=== PATIENT | male | born 1935 | race Hispanic/Latino ===

== ENCOUNTER 2017-03-20 07:57 | Day surgery (SDC) | payer MEDICARE ==
[2017-03-18 18:03] VITALS: BP 141/54
[2017-03-18 18:12] LABS: INR 1.01 (0.85-1.15); PARTIAL THROMBOPLASTIN TIME 24.9 SEC (26.3-35.5); PROTHROMBIN TIME 10.6 SEC (9.6-11.6)
[2017-03-18 18:16] LABS: EOSINOPHILS % (AUTO) 3.7 % (0.0-8.0); HEMATOCRIT 29.2 % (42-54); LYMPHOCYTES % (AUTO) 36.2 % (21.0-51.0); MEAN CORPUSCULAR HEMOGLOBIN 33.4 pg (27.0-33.0); MEAN CORPUSCULAR HGB CONC 33.9 g/dL (32.0-36.0); MEAN CORPUSCULAR VOLUME 98.6 fL (79-99); MONOCYTES % (AUTO) 9.7 % (3.0-13.0); NEUTROPHILS % (AUTO) 49.4 % (40.0-77.0); NUCLEATED RED BLOOD CELLS 0.1 % (0.0-0.19); PLATELET COUNT (AUTO) 213 K/uL (130-400); POTASSIUM 4.4 mmol/L (3.5-5.1); RED BLOOD CELL COUNT(AUTO) 2.97 MIL/uL (4.50-6.20); RED CELL DISTRIBUTION WIDTH 15.1 % (11.0-15.5); WHITE BLOOD COUNT (AUTO) 4.1 K/uL (4.8-10.8)
[2017-03-18 18:22] LABS: CREATININE 8.9 mg/dL (0.5-1.5)
[2017-03-18 18:58] LABS: APPEARANCE,URINE Clear (CLEAR); BILIRUBIN,URINE Negative (NEGATIVE); COLOR,URINE Yellow (YELLOW); GLUCOSE, URINE (UA) 500 mg/dL (NEGATIVE); KETONES,URINE Negative (NEGATIVE); LEUKOCYTE ESTERASE ,URINE Trace (NEGATIVE); NITRATE,URINE Negative (NEGATIVE); OCCULT BLOOD,URINE Trace (NEGATIVE); PH,URINE 8.5 (5.0-8.0); PROTEIN,URINE POS 2+ (NEGATIVE); UROBILINOGEN,URINE 0.2 mg/dL (0.2-1.0)
[2017-03-18 19:12] LABS: BACTERIA,URINE Rare /HPF (None Seen); RBC,URINE None Seen /HPF (0-1); WBC,URINE 0-1 /HPF (0-1)
[~2017-03-20] VITALS: Ht 175.3 cm; Wt 86.5 kg
[2017-03-20] VITALS (14 sets, daily range): BP systolic 115–140; BP diastolic 52–63
[~2017-03-20 07:57] MED LIST: ALPR-412 PO; FOLI1TAB85 PO; GABA-529 PO; INSU3INS5 SQ; LOSA50TA37 PO; METO-408 PO; OMEP40CA37 PO; SIMV40TA59 PO; TAMS0.4C32 PO; TRAZ-144 PO; [UNRECOGNIZED DRUG - OTHER] PO
[2017-03-20] MEDS ORDERED: LEVOFLOXACIN 500 MG/D5W 100 ML 100 ML IV ONE (08:00)
[2017-03-20] MEDS ORDERED: GENTAMICIN 80 MG/NS 100 ML PB 100 ML IV ONE (09:00)
[2017-03-20] MEDS ORDERED: SODIUM CHLORIDE 0.9% 1000ML 1,000 ML IV ONE (09:13)
[2017-03-20] MEDS ORDERED: ISOVUE-370 50ML VIAL IV ONE (10:17)
[2017-03-20] MEDS ORDERED: PROPOFOL 10 MG/ML 20ML VIAL IV ONE (12:27)
[2017-03-20] MEDS ORDERED: LIDOCAINE PF 2% 5ML ABBOJECT ONE (12:27)
[2017-03-20] MEDS ORDERED: FENTANYL CITRATE PF 50 MCG/1 ML 2ML VIAL ONE (12:27)
== END 2017-03-20 15:05 | disposition home or self-care (01) ==
LOC: DAH 07:57
PROVIDERS: ATTEND Urology
DX: N40.1 Benign prostatic hyperplasia with lower urinary tract symptoms (principal); R33.8 Other retention of urine; I12.0 Hypertensive chronic kidney disease with stage 5 chronic kidney disease or end stage renal disease; E11.22 Type 2 diabetes mellitus with diabetic chronic kidney disease; N18.6 End stage renal disease; Z99.2 Dependence on renal dialysis; E03.9 Hypothyroidism, unspecified; F43.10 Post-traumatic stress disorder, unspecified; I25.10 Atherosclerotic heart disease of native coronary artery without angina pectoris; N20.0 Calculus of kidney
CPT/HCPCS: 36415; 52351; 71045; 74420; 80048; 81001; 82948 ×2; 85025; 85610; 85730; 87088; 93005; A4354; A4358; A4600; C1894; J1580; J1956; J2001; J2704; J3010; J7030 ×2; Q9967; A4218

== ENCOUNTER 2017-05-31 13:32 | Inpatient (IN) | payer MEDICARE ==
[~2017-05-31] VITALS: Ht 177.8 cm; Wt 84.1 kg
[~2017-05-31 13:32] MED LIST changes: -TRAZ-144 PO; +TRAZ-185 PO
[2017-05-31 14:08] LABS: BASOPHILS % (AUTO) 1.2 % (0.0-5.0); EOSINOPHILS % (AUTO) 4.7 % (0.0-8.0); HEMATOCRIT 31.7 % (42-54); LYMPHOCYTES % (AUTO) 21.6 % (21.0-51.0); MEAN CORPUSCULAR HEMOGLOBIN 32.9 pg (27.0-33.0); MEAN CORPUSCULAR HGB CONC 34.5 g/dL (32.0-36.0); MEAN CORPUSCULAR VOLUME 95.5 fL (79-99); MONOCYTES % (AUTO) 8.2 % (3.0-13.0); NEUTROPHILS % (AUTO) 64.3 % (40.0-77.0); PLATELET COUNT (AUTO) 189 K/uL (130-400); RED BLOOD CELL COUNT(AUTO) 3.32 MIL/uL (4.50-6.20); RED CELL DISTRIBUTION WIDTH 17.8 % (11.0-15.5); WHITE BLOOD COUNT (AUTO) 6.9 K/uL (4.8-10.8)
[2017-05-31 14:21] LABS: ALBUMIN 3.3 g/dL (3.5-5.0); BILIRUBIN,TOTAL 0.4 mg/dL (0.2-1.0); POTASSIUM 3.6 mmol/L (3.5-5.1); TOTAL PROTEIN, SERUM 7.5 g/dL (6.0-8.3)
[2017-05-31 14:27] LABS: CREATININE 9.5 mg/dL (0.5-1.5)
[2017-05-31] MEDS ORDERED: SODIUM CHLORIDE 0.9% 500ML 500 ML IV ONE (14:40)
[2017-05-31 14:59] LABS: CREATINE KINASE MB 1.2 ng/mL (0.5-3.6); MAGNESIUM 1.9 mg/dL (1.80-2.40)
[2017-05-31 15:02] LABS: INR 1.01 (0.85-1.15); PARTIAL THROMBOPLASTIN TIME 22.5 SEC (26.3-35.5); PROTHROMBIN TIME 10.4 SEC (9.6-11.6)
[2017-05-31] MEDS ORDERED: MECLIZINE HCL 25 MG TABLET ONE (15:56)
[2017-05-31 16:00] LABS: APPEARANCE,URINE Turbid (CLEAR); BILIRUBIN,URINE Negative (NEGATIVE); COLOR,URINE Yellow (YELLOW); GLUCOSE, URINE (UA) Negative (NEGATIVE); KETONES,URINE Negative (NEGATIVE); LEUKOCYTE ESTERASE ,URINE Large (NEGATIVE); NITRATE,URINE Negative (NEGATIVE); OCCULT BLOOD,URINE Moderate (NEGATIVE); PH,URINE 6.5 (5.0-8.0); PROTEIN,URINE 300 (NEGATIVE); UROBILINOGEN,URINE 0.2 mg/dL (0.2-1.0)
[2017-05-31 16:06] LABS: BACTERIA,URINE Moderate /HPF (None Seen); RBC,URINE >100 /HPF (0-1); TRANSITIONAL EPI CELLS,URINE Many /HPF (None Seen); WBC,URINE Full Field /HPF (0-1)
[2017-05-31] MEDS ORDERED: VANCOMYCIN 1.25 GM in SODIUM CHLORIDE 0.9% 250 ML IV SCH (17:45)
[2017-05-31 21:40] VITALS: BP 165/82
[2017-05-31] MEDS ORDERED: MEROPENEM 1GM IVPB PREMIXED 1 GM IV SCH (22:15)
[2017-05-31] MEDS ORDERED: VANCOMYCIN PROTOCOL PER PHARMACY IV SCH (22:15)
[2017-05-31] MEDS ORDERED: ACETAMINOPHEN 325 MG TAB PO PRN (22:15)
[2017-05-31 23:40] VITALS: BP 148/71
[2017-06-01 04:00] VITALS: BP_SYST 139; BP_SYST 148; BP_SYST 160; BP_DIAS 50; BP_DIAS 74; BP_DIAS 94
[2017-06-01 05:28] LABS: HEMATOCRIT 29.1 % (42-54); MEAN CORPUSCULAR HEMOGLOBIN 32.1 pg (27.0-33.0); MEAN CORPUSCULAR HGB CONC 33.5 g/dL (32.0-36.0); MEAN CORPUSCULAR VOLUME 95.8 fL (79-99); PLATELET COUNT (AUTO) 180 K/uL (130-400); RED BLOOD CELL COUNT(AUTO) 3.03 MIL/uL (4.50-6.20); RED CELL DISTRIBUTION WIDTH 17.9 % (11.0-15.5)
[2017-06-01 05:49] LABS: ALBUMIN 2.8 g/dL (3.5-5.0); BILIRUBIN,TOTAL 0.3 mg/dL (0.2-1.0); POTASSIUM 3.5 mmol/L (3.5-5.1); TOTAL PROTEIN, SERUM 6.3 g/dL (6.0-8.3)
[2017-06-01 06:02] LABS: CREATININE 10.5 mg/dL (0.5-1.5)
[2017-06-01] MEDS ORDERED: COMPOUND IV REFRIGERATED 1 EACH IVSOLN MISC PRN (06:15)
[2017-06-01 07:00] VITALS: BP 129/61
[2017-06-01] MEDS: PANTOPRAZOLE SODIUM 40 MG TABLET.DR PO SCH (08:54)
[2017-06-01] MEDS: MEROPENEM 1 GM VIAL IVP SCH ×2 (08:54→21:18)
[2017-06-01 11:00] VITALS: BP 137/60
[2017-06-01] MEDS: INSULIN HUMULIN R 100 UNIT/ML 3ML SQ SCH ×3 (11:30→21:00)
[2017-06-01] MEDS: ALPRAZOLAM 1 MG TAB PO SCH ×2 (14:00→21:24)
[2017-06-01 16:00] VITALS: BP 145/59
[2017-06-01 19:50] VITALS: BP 142/64
[2017-06-01] MEDS: TAMSULOSIN HCL 0.4 MG CAP.ER.24H PO SCH (21:18)
[2017-06-01] MEDS: TRAZODONE HCL 50 MG TAB PO SCH (21:18)
[2017-06-01] MEDS: GABAPENTIN 100 MG CAPSULE PO SCH (21:18)
[2017-06-01 23:34] VITALS: BP 115/45
[2017-06-02 03:35] VITALS: BP 107/41
[2017-06-02] MEDS: INSULIN HUMULIN R 100 UNIT/ML 3ML SQ SCH ×4 (06:15→21:00)
[2017-06-02] MEDS: THYROXINE PO SCH (09:00)
[2017-06-02 09:07] VITALS: BP 118/58
[2017-06-02 12:00] VITALS: BP 137/55
[2017-06-02] MEDS: MEROPENEM 1 GM VIAL IVP SCH ×2 (12:31→20:59)
[2017-06-02] MEDS: ATORVASTATIN CALCIUM 20 MG TABLET PO SCH (12:31)
[2017-06-02] MEDS: PANTOPRAZOLE SODIUM 40 MG TABLET.DR PO SCH (12:31)
[2017-06-02] MEDS: FOLIC ACID/VITAMIN B COMP W-C 1 MG CAPSULE PO SCH (12:31)
[2017-06-02] MEDS: ALPRAZOLAM 1 MG TAB PO SCH ×3 (12:31→20:59)
[2017-06-02] MEDS: GABAPENTIN 100 MG CAPSULE PO SCH ×2 (12:33→20:59)
[2017-06-02 16:48] VITALS: BP 125/56
[2017-06-02 19:35] VITALS: BP 119/54
[2017-06-02] MEDS: TAMSULOSIN HCL 0.4 MG CAP.ER.24H PO SCH (20:59)
[2017-06-02] MEDS: TRAZODONE HCL 50 MG TAB PO SCH (20:59)
[2017-06-02 23:33] VITALS: BP 101/38
[2017-06-03 03:46] VITALS: BP 97/47
[2017-06-03 04:30] VITALS: BP 106/66
[2017-06-03 05:57] LABS: BASOPHILS % (AUTO) 0.6 % (0.0-5.0); EOSINOPHILS % (AUTO) 5.7 % (0.0-8.0); HEMATOCRIT 33.9 % (42-54); LYMPHOCYTES % (AUTO) 16.5 % (21.0-51.0); MEAN CORPUSCULAR HEMOGLOBIN 32.1 pg (27.0-33.0); MEAN CORPUSCULAR HGB CONC 33.2 g/dL (32.0-36.0); MEAN CORPUSCULAR VOLUME 96.8 fL (79-99); MONOCYTES % (AUTO) 10.1 % (3.0-13.0); NEUTROPHILS % (AUTO) 67.1 % (40.0-77.0); PLATELET COUNT (AUTO) 182 K/uL (130-400); RED CELL DISTRIBUTION WIDTH 18.1 % (11.0-15.5)
[2017-06-03 06:22] LABS: POTASSIUM 4.2 mmol/L (3.5-5.1)
[2017-06-03 06:25] LABS: CREATININE 10.1 mg/dL (0.5-1.5)
[2017-06-03] MEDS: INSULIN HUMULIN R 100 UNIT/ML 3ML SQ SCH ×2 (06:34→11:30)
[2017-06-03] MEDS ORDERED: FLUCONAZOLE 100 MG TAB PO SCH (09:00)
[2017-06-03] MEDS: THYROXINE PO SCH (09:00)
[2017-06-03 09:01] VITALS: BP 115/56
[2017-06-03] MEDS: MEROPENEM 1 GM VIAL IVP SCH (10:08)
[2017-06-03] MEDS: ATORVASTATIN CALCIUM 20 MG TABLET PO SCH (10:10)
[2017-06-03] MEDS: PANTOPRAZOLE SODIUM 40 MG TABLET.DR PO SCH (10:10)
[2017-06-03] MEDS: FOLIC ACID/VITAMIN B COMP W-C 1 MG CAPSULE PO SCH (10:10)
[2017-06-03] MEDS: ALPRAZOLAM 1 MG TAB PO SCH ×2 (10:10→14:59)
[2017-06-03] MEDS: GABAPENTIN 100 MG CAPSULE PO SCH (10:10)
[2017-06-03 12:11] VITALS: BP 113/56
[2017-06-07] MEDS ORDERED: VANCOMYCIN 1.25 GM in SODIUM CHLORIDE 0.9% 250 ML IV SCH (09:00)
== END 2017-06-03 19:05 | disposition home or self-care (01) | DRG 871 ==
LOC: EDH 13:32 → EDHIP 17:35 → 4CH 20:30
PROVIDERS: ADMIT Internal Medicine Nephrology; ATTEND Internal Medicine Nephrology
PROC: 5A1D70Z Performance of Urinary Filtration, Intermittent, Less than 6 Hours Per Day (ICD-10-PCS; principal; 2017-06-02)
DX: A41.9 Sepsis, unspecified organism (principal); N18.6 End stage renal disease; E11.22 Type 2 diabetes mellitus with diabetic chronic kidney disease; I12.0 Hypertensive chronic kidney disease with stage 5 chronic kidney disease or end stage renal disease; I48.92 Unspecified atrial flutter; N39.0 Urinary tract infection, site not specified; D64.9 Anemia, unspecified; M19.90 Unspecified osteoarthritis, unspecified site; E03.9 Hypothyroidism, unspecified; E66.9 Obesity, unspecified; E78.5 Hyperlipidemia, unspecified; F41.1 Generalized anxiety disorder; F43.10 Post-traumatic stress disorder, unspecified; I25.10 Atherosclerotic heart disease of native coronary artery without angina pectoris; N40.0 Benign prostatic hyperplasia without lower urinary tract symptoms; Z99.2 Dependence on renal dialysis; Z87.442 Personal history of urinary calculi; Z87.440 Personal history of urinary (tract) infections; Z68.26 Body mass index [BMI] 26.0-26.9, adult; Z88.0 Allergy status to penicillin; Z83.3 Family history of diabetes mellitus
CPT/HCPCS: 36415; 70450; 80048; 80053; 80202; 81001; 82550; 82553; 82948; 83735; 84484; 85025; 85027; 85610; 85730; 87040; 87088; 87804; 90935; 93306; A4218; J1815; J2185; J3370; J7030; J7040

== ENCOUNTER → 2018-05-05 | Outpatient (CLI) | payer MEDICARE ==
[~2018-05-05] MED LIST changes: -LOSA50TA37 PO; +LOSA50TA64 PO
== END | disposition home or self-care (01) ==
LOC: SHCH 10:02
PROVIDERS: ATTEND Internal Medicine Cardiovascular Disease
DX: I11.9 Hypertensive heart disease without heart failure (principal); I65.23 Occlusion and stenosis of bilateral carotid arteries; I34.0 Nonrheumatic mitral (valve) insufficiency; I25.10 Atherosclerotic heart disease of native coronary artery without angina pectoris
CPT/HCPCS: 93306; 93880

== ENCOUNTER → 2018-05-07 | Outpatient (CLI) | payer MEDICARE ==
[~2018-05-07] MED LIST changes: +REGADENOSON 0.4 MG/5 ML PF SYG IVP SCH
== END | disposition home or self-care (01) ==
LOC: SHCH 09:32
PROVIDERS: ATTEND Internal Medicine Cardiovascular Disease
DX: R01.1 Cardiac murmur, unspecified (principal); R07.89 Other chest pain
CPT/HCPCS: 78452; 93017; 96374; A9500 ×2; J2785

== ENCOUNTER 2018-09-03 09:04 | Day surgery (SDC) | payer MEDICARE ==
[~2018-09-03] VITALS: Ht 175.3 cm; Wt 81.6 kg
[~2018-09-03 09:04] MED LIST changes: -LOSA50TA64 PO; -REGADENOSON 0.4 MG/5 ML PF SYG IVP SCH; +SODIUM CHLORIDE 0.9% 1000ML 1,000 ML IV ONE; -TAMS0.4C32 PO
[2018-09-03 10:18] VITALS: BP 134/50
[2018-09-03 11:02] VITALS: BP 120/50
[2018-09-03 11:07] VITALS: BP 103/44
[2018-09-03 11:12] VITALS: BP 98/52
[2018-09-03 11:17] VITALS: BP 106/52
[2018-09-03 11:22] VITALS: BP 110/55
--- NOTE | 2018-09-03 11:30 | NUR ---
dc pt dc home via wc no distress noted. denied any pain or discomforts accompanied by spouse. dc instructions given to pt spouse earlier with follow up appointment, instructed to continue home meds. she verbalized understanding.
== END 2018-09-03 11:30 | disposition home or self-care (01) ==
LOC: DAH 09:04 → ENDO 09:04
PROVIDERS: ATTEND Internal Medicine
DX: K29.50 Unspecified chronic gastritis without bleeding (principal); K31.9 Disease of stomach and duodenum, unspecified; K31.7 Polyp of stomach and duodenum; K22.8 Other specified diseases of esophagus; K31.89 Other diseases of stomach and duodenum; D50.9 Iron deficiency anemia, unspecified; E78.5 Hyperlipidemia, unspecified; F41.9 Anxiety disorder, unspecified; F32.9 Major depressive disorder, single episode, unspecified; E11.22 Type 2 diabetes mellitus with diabetic chronic kidney disease; I12.0 Hypertensive chronic kidney disease with stage 5 chronic kidney disease or end stage renal disease; N18.6 End stage renal disease; Z99.2 Dependence on renal dialysis; R00.1 Bradycardia, unspecified; Z79.899 Other long term (current) drug therapy; Z87.442 Personal history of urinary calculi; Z86.010 Personal history of colon polyps; Z80.0 Family history of malignant neoplasm of digestive organs
CPT/HCPCS: 36415; 43239; 82948 ×2; 84132; 88305; 88342; 93005; A4606; J7030

== ENCOUNTER 2018-09-29 07:09 | Day surgery (SDC) | payer MEDICARE ==
[~2018-09-29] VITALS: Ht 177.8 cm; Wt 81.8 kg
[2018-09-29 09:00] VITALS: BP 178/72
[2018-09-29] MEDS ORDERED: PANT40TA25 PO (09:29)
[2018-09-29] MEDS ORDERED: LEVO25TA4 PO (09:29)
[2018-09-29] MEDS ORDERED: AMLODIPINE PO (09:29)
[2018-09-29] MEDS ORDERED: LOSARTAN PO (09:29)
[2018-09-29] MEDS ORDERED: INSU3INS5 SQ (09:29)
[2018-09-29] MEDS ORDERED: METOPROLOL PO (09:29)
[2018-09-29] MEDS ORDERED: PROPOFOL 10 MG/ML 20ML VIAL IV ONE (10:47)
[2018-09-29 11:42] VITALS: BP 127/37
[2018-09-29 11:47] VITALS: BP 116/37
[2018-09-29 11:52] VITALS: BP 114/67
[2018-09-29 11:57] VITALS: BP 145/48
[2018-09-29 12:02] VITALS: BP 148/44
--- NOTE | 2018-09-29 12:25 | NUR ---
Patient's urine is light pink. Patient's states he has had pink urine for some time and it not a new occurrence. Addendum: 09/29/18 at 1226 by ERICA SABILLON RN RN Amended: Links added.
== END 2018-09-29 12:14 | disposition home or self-care (01) ==
LOC: ENDO 07:09 → DAH 07:09 → ENDO 12:14
PROVIDERS: ATTEND Internal Medicine
DX: D12.2 Benign neoplasm of ascending colon (principal); D12.0 Benign neoplasm of cecum; D12.4 Benign neoplasm of descending colon; D12.3 Benign neoplasm of transverse colon; K21.9 Gastro-esophageal reflux disease without esophagitis; K57.30 Diverticulosis of large intestine without perforation or abscess without bleeding; Z86.010 Personal history of colon polyps; K59.01 Slow transit constipation; K29.70 Gastritis, unspecified, without bleeding; I12.0 Hypertensive chronic kidney disease with stage 5 chronic kidney disease or end stage renal disease; E11.22 Type 2 diabetes mellitus with diabetic chronic kidney disease; N18.6 End stage renal disease; Z79.899 Other long term (current) drug therapy; E78.5 Hyperlipidemia, unspecified; F41.9 Anxiety disorder, unspecified; F32.9 Major depressive disorder, single episode, unspecified; Z90.49 Acquired absence of other specified parts of digestive tract; Z98.890 Other specified postprocedural states; Z96.659 Presence of unspecified artificial knee joint
CPT/HCPCS: 36415; 45380; 45385; 82948 ×2; 84132; 88305; A4649; J2704; J7030

== ENCOUNTER 2018-10-01 16:20 | Observation (INO) | payer MEDICARE ==
[~2018-10-01 16:20] MED LIST changes: +AMLODIPINE PO; +LEVO25TA4 PO; +LOSARTAN PO; -METO-408 PO; +METOPROLOL PO; -OMEP40CA37 PO; +PANT40TA25 PO; -SODIUM CHLORIDE 0.9% 1000ML 1,000 ML IV ONE; -[UNRECOGNIZED DRUG - OTHER] PO
[2018-10-01] MEDS ORDERED: ONDANSETRON HCL 4 MG/2 ML VIAL ONE ×2 (16:30→17:33)
[2018-10-01 17:09] LABS: BASOPHILS % (AUTO) 0.7 % (0.0-5.0); EOSINOPHILS % (AUTO) 0.3 % (0.0-8.0); HEMATOCRIT 42.4 % (42-54); LYMPHOCYTES % (AUTO) 23.1 % (21.0-51.0); MEAN CORPUSCULAR HEMOGLOBIN 31.7 pg (27.0-33.0); MEAN CORPUSCULAR HGB CONC 32.7 g/dL (32.0-36.0); MEAN CORPUSCULAR VOLUME 97.1 fL (79-99); MONOCYTES % (AUTO) 8.3 % (3.0-13.0); NEUTROPHILS % (AUTO) 67.6 % (40.0-77.0); PLATELET COUNT (AUTO) 217 K/uL (130-400); RED BLOOD CELL COUNT(AUTO) 4.37 MIL/uL (4.50-6.20); RED CELL DISTRIBUTION WIDTH 16.1 % (11.0-15.5); WHITE BLOOD COUNT (AUTO) 7.3 K/uL (4.8-10.8)
[2018-10-01 17:25] LABS: INR 1.03 (0.85-1.15); PARTIAL THROMBOPLASTIN TIME 28.4 SEC (26.3-35.5); PROTHROMBIN TIME 10.8 SEC (9.6-11.6)
[2018-10-01 17:37] LABS: ALBUMIN 3.9 g/dL (3.5-5.0); BILIRUBIN,TOTAL 0.4 mg/dL (0.2-1.0); POTASSIUM 3.7 mmol/L (3.5-5.1); TOTAL PROTEIN, SERUM 8.3 g/dL (6.0-8.3)
[2018-10-01 17:40] LABS: CREATININE 9.4 mg/dL (0.5-1.5)
[2018-10-01 18:04] LABS: BILIRUBIN,URINE Negative (NEGATIVE); COLOR,URINE Yellow (YELLOW); GLUCOSE, URINE (UA) 250 mg/dL (NEGATIVE); KETONES,URINE Negative (NEGATIVE); LEUKOCYTE ESTERASE ,URINE Large (NEGATIVE); NITRATE,URINE Negative (NEGATIVE); OCCULT BLOOD,URINE Large (NEGATIVE); PH,URINE 6.5 (5.0-8.0); PROTEIN,URINE 300 mg/dL (NEGATIVE)
[2018-10-01 18:21] LABS: APPEARANCE,URINE CLOUDY (CLEAR)
[2018-10-01 18:32] LABS: BACTERIA,URINE Few /HPF (None Seen); WBC,URINE >100 /HPF (0-1)
[2018-10-01 18:33] LABS: SQUAMOUS EPITHELIAL CELL,UR Rare /HPF (0-2)
[2018-10-01] MEDS ORDERED: CEFTRIAXONE SODIUM 1 GM ONE (19:13)
[2018-10-01] MEDS ORDERED: CEFTRIAXONE SODIUM 1 GM IV SCH (19:30)
[2018-10-01] MEDS ORDERED: ACETAMINOPHEN 325 MG TAB PO PRN (19:30)
[2018-10-01] MEDS ORDERED: MORPHINE SULFATE 2 MG/ML 1ML SYG IV PRN (19:30)
[2018-10-01] MEDS ORDERED: ONDANSETRON HCL 4 MG/2 ML VIAL IV PRN (19:30)
[2018-10-01] MEDS ORDERED: LACTULOSE 20 GM/30 ML UDCUP PO PRN (19:45)
[2018-10-01] MEDS ORDERED: FAMOTIDINE 20MG TAB 20 MG TAB ONE (20:25)
[2018-10-01] MEDS ORDERED: FAMOTIDINE 20MG TAB 20 MG TAB PO SCH (21:00)
[2018-10-01] MEDS ORDERED: INSULIN HUMULIN R 100 UNIT/ML 3ML SQ SCH (21:00)
[2018-10-01] MEDS ORDERED: LORAZEPAM 2 MG/ML 1 ML VIAL ONE ×2 (21:35→21:36)
[2018-10-01] MEDS ORDERED: FOSPHENYTOIN SODIUM 500 MG/10ML VIAL IJ ONE (21:39)
[2018-10-01] MEDS ORDERED: SODIUM CHLORIDE 0.9% 100 ML IV ONE (21:42)
[2018-10-02] MEDS ORDERED: ENOXAPARIN SODIUM 40 MG/0.4 ML SYRINGE SQ SCH (09:00)
== END 2018-10-02 00:37 | disposition short-term general hospital (02) ==
LOC: EEVIPCON 16:20 → EDH 16:20 → EDHIP 19:16
PROVIDERS: ADMIT Internal Medicine; ATTEND Internal Medicine
DX: N39.0 Urinary tract infection, site not specified (principal); I12.0 Hypertensive chronic kidney disease with stage 5 chronic kidney disease or end stage renal disease; N18.6 End stage renal disease; E11.22 Type 2 diabetes mellitus with diabetic chronic kidney disease; E78.5 Hyperlipidemia, unspecified; J44.9 Chronic obstructive pulmonary disease, unspecified; K57.90 Diverticulosis of intestine, part unspecified, without perforation or abscess without bleeding; K59.00 Constipation, unspecified; M19.90 Unspecified osteoarthritis, unspecified site; M47.812 Spondylosis without myelopathy or radiculopathy, cervical region; R56.9 Unspecified convulsions; S12.600A Unspecified displaced fracture of seventh cervical vertebra, initial encounter for closed fracture; X58.XXXA Exposure to other specified factors, initial encounter; Y93.89 Activity, other specified; Y92.89 Other specified places as the place of occurrence of the external cause; Y99.8 Other external cause status; Z99.2 Dependence on renal dialysis; Z82.0 Family history of epilepsy and other diseases of the nervous system; Z82.3 Family history of stroke; Z82.49 Family history of ischemic heart disease and other diseases of the circulatory system; Z82.5 Family history of asthma and other chronic lower respiratory diseases; Z83.3 Family history of diabetes mellitus; Z90.49 Acquired absence of other specified parts of digestive tract; Z98.41 Cataract extraction status, right eye; Z98.42 Cataract extraction status, left eye; Z96.652 Presence of left artificial knee joint; Z79.899 Other long term (current) drug therapy
CPT/HCPCS: 36415; 70450 ×2; 71045; 72125; 74176; 80053; 81001; 82150; 82550; 82948; 83605; 83690; 84484; 85025; 85610; 85730; 87040 ×2; 87088; 93005; 99291; G0378 ×5; J0696; J2060 ×2; J2405 ×2; Q2009

== ENCOUNTER 2019-11-15 10:01 | Emergency (ER) | payer MEDICARE ==
[~2019-11-15 10:01] MED LIST changes: -PANT40TA25 PO; +PANT40TA54 PO
[2019-11-15 10:26] LABS: ALBUMIN 2.6 g/dL (3.5-5.0); BILIRUBIN,TOTAL 0.4 mg/dL (0.2-1.0); POTASSIUM 5.7 mmol/L (3.5-5.1); TOTAL PROTEIN, SERUM 7.1 g/dL (6.0-8.3)
[2019-11-15 10:27] LABS: CREATININE 10.6 mg/dL (0.5-1.5)
[2019-11-15 10:51] LABS: CREATINE KINASE, TOTAL 103 U/L (21-232); MYOGLOBIN 356 ng/mL (10-92); TROPONIN I < 0.04 ng/mL (0.00-0.06)
[2019-11-15 11:54] LABS: BASOPHILS % (AUTO) 0.6 % (0.0-5.0); EOSINOPHILS % (AUTO) 2.5 % (0.0-8.0); HEMATOCRIT 24.3 % (42-54); LYMPHOCYTES % (AUTO) 9.5 % (21.0-51.0); MEAN CORPUSCULAR HEMOGLOBIN 31.2 pg (27.0-33.0); MEAN CORPUSCULAR HGB CONC 30.5 g/dL (32.0-36.0); MEAN CORPUSCULAR VOLUME 102.5 fL (79-99); MONOCYTES % (AUTO) 8.9 % (3.0-13.0); NEUTROPHILS % (AUTO) 78.3 % (40.0-77.0); PLATELET COUNT (AUTO) 247 K/uL (130-400); RED BLOOD CELL COUNT(AUTO) 2.37 MIL/uL (4.50-6.20); RED CELL DISTRIBUTION WIDTH 16.1 % (11.0-15.5)
[2019-11-15 12:01] LABS: INR 1.07 (0.85-1.15); PARTIAL THROMBOPLASTIN TIME 28.2 SEC (26.3-35.5); PROTHROMBIN TIME 11.5 SEC (9.6-11.6)
[2019-11-15 12:25] LABS: B-TYPE NATRIURETIC PEPTIDE 2000 pg/mL (0-100)
== END 2019-11-15 14:17 | disposition left against medical advice (07) ==
LOC: EDH 10:01
DX: S01.01XA Laceration without foreign body of scalp, initial encounter (principal); R55 Syncope and collapse; I12.0 Hypertensive chronic kidney disease with stage 5 chronic kidney disease or end stage renal disease; E11.22 Type 2 diabetes mellitus with diabetic chronic kidney disease; N18.6 End stage renal disease; E78.5 Hyperlipidemia, unspecified; Z90.49 Acquired absence of other specified parts of digestive tract; W18.39XA Other fall on same level, initial encounter; Y93.89 Activity, other specified; Y92.89 Other specified places as the place of occurrence of the external cause; Y99.8 Other external cause status
CPT/HCPCS: 12001; 36415; 70450; 72125; 80053; 82550; 83874; 83880; 84484; 85025; 85610; 85730; 93005

== ENCOUNTER 2019-12-06 14:21 | Emergency (ER) | payer MEDICARE | END 2019-12-06 14:45 | disposition home or self-care (01) | LOC: EDH 14:21 | DX: S01.01XD Laceration without foreign body of scalp, subsequent encounter (principal); I12.0 Hypertensive chronic kidney disease with stage 5 chronic kidney disease or end stage renal disease; E11.22 Type 2 diabetes mellitus with diabetic chronic kidney disease; N18.6 End stage renal disease; E78.5 Hyperlipidemia, unspecified; F43.10 Post-traumatic stress disorder, unspecified; Z99.2 Dependence on renal dialysis; Z87.891 Personal history of nicotine dependence; X58.XXXD Exposure to other specified factors, subsequent encounter | CPT/HCPCS: 99281 ==

== ENCOUNTER → 2020-03-23 | Outpatient (CLI) | payer MEDICARE ==
[~2020-03-23] VITALS: Ht 177.8 cm; Wt 89.8 kg
[~2020-03-23] MED LIST changes: +REGADENOSON 0.4 MG/5 ML PF SYG IVP SCH
== END | disposition home or self-care (01) ==
LOC: SHCH 08:01
PROVIDERS: ATTEND Internal Medicine Cardiovascular Disease
DX: I25.110 Atherosclerotic heart disease of native coronary artery with unstable angina pectoris (principal)
CPT/HCPCS: 78452; 93017; 96374; A9500 ×2; J2785

== ENCOUNTER 2020-05-14 15:18 | Inpatient (IN) | payer MEDICARE ==
[~2020-05-14] VITALS: Ht 177.8 cm; Wt 92.8 kg
[~2020-05-14 15:18] MED LIST changes: -REGADENOSON 0.4 MG/5 ML PF SYG IVP SCH
[2020-05-14 16:29] LABS: INR 1.05 (0.85-1.15); PROTHROMBIN TIME 11.4 SEC (9.6-11.6)
[2020-05-14 16:31] LABS: PARTIAL THROMBOPLASTIN TIME 24.5 SEC (26.3-35.5)
[2020-05-14 16:35] LABS: ALBUMIN 3.6 g/dL (3.5-5.0); BILIRUBIN,TOTAL 0.4 mg/dL (0.2-1.0); POTASSIUM 4.9 mmol/L (3.5-5.1); TOTAL PROTEIN, SERUM 8.1 g/dL (6.0-8.3)
[2020-05-14 16:37] LABS: BASOPHILS % (AUTO) 0.8 % (0.0-5.0); EOSINOPHILS % (AUTO) 2.6 % (0.0-8.0); HEMATOCRIT 35.2 % (42-54); LYMPHOCYTES % (AUTO) 12.2 % (21.0-51.0); MEAN CORPUSCULAR HEMOGLOBIN 33.7 pg (27.0-33.0); MEAN CORPUSCULAR HGB CONC 31.5 g/dL (32.0-36.0); MONOCYTES % (AUTO) 5.6 % (3.0-13.0); NEUTROPHILS % (AUTO) 78.4 % (40.0-77.0); PLATELET COUNT (AUTO) 222 K/uL (130-400); RED BLOOD CELL COUNT(AUTO) 3.29 MIL/uL (4.50-6.20); RED CELL DISTRIBUTION WIDTH 15.9 % (11.0-15.5); WHITE BLOOD COUNT (AUTO) 7.4 K/uL (4.8-10.8)
[2020-05-14 16:38] LABS: CREATININE 11.5 mg/dL (0.5-1.5)
[2020-05-14 17:00] LABS: B-TYPE NATRIURETIC PEPTIDE 369 pg/mL (0-100)
[2020-05-14] MEDS ORDERED: ACETAMINOPHEN 325 MG TAB PO PRN (17:45)
[2020-05-14] MEDS ORDERED: ONDANSETRON 4MG INJ IVP PRN (17:45)
[2020-05-14] MEDS ORDERED: MORPHINE 2 MG SYG IVP PRN (17:45)
[2020-05-14 19:32] LABS: APPEARANCE,URINE Turbid (CLEAR); BILIRUBIN,URINE Negative (NEGATIVE); COLOR,URINE Yellow (YELLOW); GLUCOSE, URINE (UA) 250 mg/dL (NEGATIVE); KETONES,URINE Negative (NEGATIVE); LEUKOCYTE ESTERASE ,URINE Large (NEGATIVE); NITRATE,URINE Negative (NEGATIVE); OCCULT BLOOD,URINE Large (NEGATIVE); PROTEIN,URINE 300 mg/dL (NEGATIVE); UROBILINOGEN,URINE 0.2 mg/dL (0.2-1.0)
[2020-05-14 19:44] LABS: BACTERIA,URINE Few /HPF (None Seen); MUCUS,URINE Rare LPF (None Seen); SQUAMOUS EPITHELIAL CELL,UR 0-2 /HPF (0-2); WBC,URINE >100 /HPF (0-1)
[2020-05-14 20:49] VITALS: BP 104/32
[2020-05-14] MEDS ORDERED: FOLI0.8T22 PO (21:19)
[2020-05-15] VITALS (7 sets, daily range): BP systolic 104–166; BP diastolic 42–64
[2020-05-15] MEDS: ASPIRIN 81MG CHEW TAB PO SCH (08:45)
[2020-05-15 08:49] LABS: BASOPHILS % (AUTO) 0.7 % (0.0-5.0); EOSINOPHILS % (AUTO) 3.4 % (0.0-8.0); LYMPHOCYTES % (AUTO) 16.9 % (21.0-51.0); MEAN CORPUSCULAR HEMOGLOBIN 32.3 pg (27.0-33.0); MEAN CORPUSCULAR HGB CONC 30.6 g/dL (32.0-36.0); MEAN CORPUSCULAR VOLUME 105.6 fL (79-99); MONOCYTES % (AUTO) 7.6 % (3.0-13.0); NEUTROPHILS % (AUTO) 71.1 % (40.0-77.0); PLATELET COUNT (AUTO) 217 K/uL (130-400); RED BLOOD CELL COUNT(AUTO) 3.41 MIL/uL (4.50-6.20); RED CELL DISTRIBUTION WIDTH 15.9 % (11.0-15.5); WHITE BLOOD COUNT (AUTO) 6.9 K/uL (4.8-10.8)
[2020-05-15 08:57] LABS: POTASSIUM 5.6 mmol/L (3.5-5.1)
[2020-05-15] MEDS: INSULIN HUMULIN R 100 UNIT/ML 3ML SQ SCH ×3 (11:30→21:00)
[2020-05-15] MEDS: CEFTRIAXONE 1G VIAL IVP SCH (14:10)
[2020-05-15] MEDS: CLOPIDOGREL 75MG TAB PO SCH (17:21)
[2020-05-15] MEDS ORDERED: ATORVASTATIN 40 MG TABLET PO SCH (21:00)
[2020-05-15] MEDS: SIMVASTATIN 20 MG TABLET PO SCH (22:45)
[2020-05-15] MEDS: METOPROLOL TARTRATE 25 MG TAB PO SCH (22:45)
[2020-05-16] VITALS (12 sets, daily range): BP systolic 104–145; BP diastolic 41–76
[2020-05-16] MEDS ORDERED: DILTIAZEM 50MG VIAL IV ONE (02:58)
[2020-05-16] MEDS ORDERED: DILTIAZEM 25MG INJ IVP ONE (02:59)
[2020-05-16] MEDS ORDERED: 0.9%NACL 100ML 100 ML IV ONE (02:59)
[2020-05-16] MEDS ORDERED: DILTIAZEM 125 MG/25 ML INJ 125 MG in 0.9%NACL 100ML 100 ML IV PRN (03:00)
[2020-05-16 05:37] LABS: HEMATOCRIT 34.8 % (42-54); MEAN CORPUSCULAR HEMOGLOBIN 33.2 pg (27.0-33.0); MEAN CORPUSCULAR HGB CONC 31.9 g/dL (32.0-36.0); MEAN CORPUSCULAR VOLUME 104.2 fL (79-99); RED BLOOD CELL COUNT(AUTO) 3.34 MIL/uL (4.50-6.20); RED CELL DISTRIBUTION WIDTH 15.9 % (11.0-15.5); WHITE BLOOD COUNT (AUTO) 6.3 K/uL (4.8-10.8)
[2020-05-16] MEDS: INSULIN HUMULIN R 100 UNIT/ML 3ML SQ SCH ×4 (05:43→21:00)
[2020-05-16 05:55] LABS: INR 1.14 (0.85-1.15); PROTHROMBIN TIME 11.7 SEC (9.6-11.6)
[2020-05-16 05:56] LABS: PARTIAL THROMBOPLASTIN TIME 24.3 SEC (26.3-35.5)
[2020-05-16 06:03] LABS: POTASSIUM 4.6 mmol/L (3.5-5.1)
[2020-05-16 06:06] LABS: CREATININE 9.8 mg/dL (0.5-1.5)
[2020-05-16] MEDS: ASPIRIN 81MG CHEW TAB PO SCH (08:36)
[2020-05-16] MEDS: CLOPIDOGREL 75MG TAB PO SCH (08:36)
[2020-05-16] MEDS: METOPROLOL TARTRATE 25 MG TAB PO SCH ×2 (08:37→21:04)
[2020-05-16 10:14] LABS: HEPATITIS B CORE IGM Negative (Negative); HEPATITIS Bs ANTIGEN SCREEN P Negative (Negative)
[2020-05-16] MEDS ORDERED: IOHEXOL 350 MG/ML 100ML INFUS..BTL IV ONE ×2 (11:28→13:20)
[2020-05-16] MEDS ORDERED: LIDOCAINE HCL 400MG/20ML VIAL ONE (11:28)
[2020-05-16] MEDS ORDERED: NITROGLYCERIN 2 MG VIAL IV ONE (11:28)
[2020-05-16] MEDS ORDERED: BIVALIRUDIN 250 MG/VIAL IV ONE (11:28)
[2020-05-16] MEDS ORDERED: IOHEXOL-350 50ML VIAL IV ONE ×2 (11:28→12:55)
[2020-05-16] MEDS ORDERED: MIDAZOLAM HCL 1 MG/ML 2ML VIAL ONE (12:12)
[2020-05-16] MEDS ORDERED: METOPROLOL TARTRATE 1 MG/ML 5ML VIAL IV ONE ×2 (12:35→14:04)
[2020-05-16] MEDS ORDERED: CLOPIDOGREL 300MG TAB ONE (13:14)
[2020-05-16] MEDS ORDERED: ASPIRIN 325MG EC TAB PO ONE (13:14)
[2020-05-16] MEDS ORDERED: 0.9%NACL 1000ML 1,000 ML IV SCH (13:45)
[2020-05-16] MEDS: CEFTRIAXONE 1G VIAL IVP SCH (15:23)
[2020-05-16] MEDS: SIMVASTATIN 20 MG TABLET PO SCH (21:05)
[2020-05-17] VITALS (11 sets, daily range): BP systolic 125–142; BP diastolic 29–77
[2020-05-17 05:20] LABS: HEMATOCRIT 32.8 % (42-54); MEAN CORPUSCULAR HEMOGLOBIN 32.2 pg (27.0-33.0); MEAN CORPUSCULAR HGB CONC 30.5 g/dL (32.0-36.0); MEAN CORPUSCULAR VOLUME 105.5 fL (79-99); RED BLOOD CELL COUNT(AUTO) 3.11 MIL/uL (4.50-6.20)
[2020-05-17 05:28] LABS: POTASSIUM 5.3 mmol/L (3.5-5.1)
[2020-05-17 05:34] LABS: CREATININE 12.1 mg/dL (0.5-1.5)
[2020-05-17] MEDS: INSULIN HUMULIN R 100 UNIT/ML 3ML SQ SCH ×3 (06:17→20:36)
[2020-05-17] MEDS ORDERED: FENTANYL CITRATE PF 50 MCG/1 ML 2ML VIAL ONE (12:58)
[2020-05-17] MEDS ORDERED: MIDAZOLAM HCL 1 MG/ML 2ML VIAL ONE (12:58)
[2020-05-17] MEDS ORDERED: FLUMAZENIL 0.1MG/1ML 5ML VIAL IV ONE (12:59)
[2020-05-17] MEDS: CEFTRIAXONE 1G VIAL IVP SCH (13:32)
[2020-05-17] MEDS: EPOETIN ALFA-EPBX (ESRD) 10,000 UNIT/ML VIAL SQ SCH (13:33)
[2020-05-17] MEDS: Vitamin B Complex/Vit C/Folic Acid PO SCH (13:33)
[2020-05-17] MEDS: METOPROLOL TARTRATE 25 MG TAB PO SCH ×2 (13:33→20:41)
[2020-05-17] MEDS: ASPIRIN 81MG CHEW TAB PO SCH (13:34)
[2020-05-17] MEDS: CLOPIDOGREL 75MG TAB PO SCH (13:34)
[2020-05-17] MEDS: SIMVASTATIN 20 MG TABLET PO SCH (20:42)
[2020-05-18] VITALS (14 sets, daily range): BP systolic 111–154; BP diastolic 43–98
[2020-05-18] MEDS ORDERED: LOPERAMIDE HCL 2 MG CAP PO ONE (04:30)
[2020-05-18] MEDS: LOPERAMIDE 1 MG/7.5 ML UDCUP PO SCH (04:45)
[2020-05-18 05:08] LABS: HEMATOCRIT 33.3 % (42-54); MEAN CORPUSCULAR HEMOGLOBIN 33.4 pg (27.0-33.0); MEAN CORPUSCULAR HGB CONC 31.8 g/dL (32.0-36.0); RED BLOOD CELL COUNT(AUTO) 3.17 MIL/uL (4.50-6.20); RED CELL DISTRIBUTION WIDTH 15.8 % (11.0-15.5); WHITE BLOOD COUNT (AUTO) 6.6 K/uL (4.8-10.8)
[2020-05-18 05:20] LABS: INR 1.09 (0.85-1.15); PROTHROMBIN TIME 11.8 SEC (9.6-11.6)
[2020-05-18 05:22] LABS: PARTIAL THROMBOPLASTIN TIME 25.7 SEC (26.3-35.5)
[2020-05-18 05:28] LABS: POTASSIUM 4.3 mmol/L (3.5-5.1)
[2020-05-18 05:33] LABS: CREATININE 9.4 mg/dL (0.5-1.5)
[2020-05-18] MEDS: INSULIN HUMULIN R 100 UNIT/ML 3ML SQ SCH ×4 (06:08→21:00)
[2020-05-18] MEDS ORDERED: MEPERIDINE-PF 25 MG/ML SYG ONE ×2 (07:37→14:26)
[2020-05-18] MEDS ORDERED: LIDOCAINE HCL 400MG/20ML VIAL ONE (07:37)
[2020-05-18] MEDS ORDERED: MIDAZOLAM HCL 1 MG/ML 2ML VIAL ONE ×2 (07:37→14:26)
[2020-05-18] MEDS ORDERED: HEPARIN 10,000 UNIT/10ML (1,000 UNIT/ML) VIAL ONE (07:37)
[2020-05-18] MEDS: CLOPIDOGREL 75MG TAB PO SCH (10:00)
[2020-05-18] MEDS: ASPIRIN 81MG CHEW TAB PO SCH (10:00)
[2020-05-18] MEDS: Vitamin B Complex/Vit C/Folic Acid PO SCH (10:00)
[2020-05-18] MEDS: ALPRAZOLAM 1 MG TAB PO SCH ×2 (10:00→21:08)
[2020-05-18] MEDS: METOPROLOL TARTRATE 25 MG TAB PO SCH ×2 (12:02→21:09)
[2020-05-18] MEDS: CEFTRIAXONE 1G VIAL IVP SCH (21:00)
[2020-05-18] MEDS: SIMVASTATIN 20 MG TABLET PO SCH (21:08)
[2020-05-18] MEDS: APIXABAN 5 MG TABLET PO SCH ×2 (21:09→21:10)
[2020-05-19 04:00] VITALS: BP 131/61
[2020-05-19] MEDS: LOPERAMIDE 1 MG/7.5 ML UDCUP PO SCH ×2 (04:45→22:30)
[2020-05-19 05:19] LABS: POTASSIUM 4.2 mmol/L (3.5-5.1)
[2020-05-19 05:23] LABS: CREATININE 11.7 mg/dL (0.5-1.5)
[2020-05-19] MEDS: INSULIN HUMULIN R 100 UNIT/ML 3ML SQ SCH ×4 (05:41→21:00)
[2020-05-19 08:21] VITALS: BP 120/56
[2020-05-19] MEDS ORDERED: APIX2.5T PO (11:40)
[2020-05-19 12:00] VITALS: BP 125/52
[2020-05-19] MEDS: APIXABAN 2.5 MG TABLET PO SCH ×2 (13:26→22:27)
[2020-05-19] MEDS: CLOPIDOGREL 75MG TAB PO SCH (13:26)
[2020-05-19] MEDS: Vitamin B Complex/Vit C/Folic Acid PO SCH (13:26)
[2020-05-19] MEDS: METOPROLOL TARTRATE 25 MG TAB PO SCH ×2 (13:27→22:27)
[2020-05-19] MEDS: ALPRAZOLAM 1 MG TAB PO SCH ×3 (13:27→22:30)
[2020-05-19] MEDS: EPOETIN ALFA-EPBX (ESRD) 10,000 UNIT/ML VIAL SQ SCH (13:28)
[2020-05-19] MEDS: CEFTRIAXONE 1G VIAL IVP SCH (13:57)
[2020-05-19 15:58] VITALS: BP 112/41
[2020-05-19 20:00] VITALS: BP 126/59
[2020-05-19] MEDS: SIMVASTATIN 20 MG TABLET PO SCH (22:27)
[2020-05-20] VITALS: BP 101/43
[2020-05-20 01:25] VITALS: BP 132/61
[2020-05-20 04:00] VITALS: BP 103/40
[2020-05-20 05:57] LABS: HEMATOCRIT 28.5 % (42-54); MEAN CORPUSCULAR HEMOGLOBIN 33.5 pg (27.0-33.0); MEAN CORPUSCULAR HGB CONC 31.9 g/dL (32.0-36.0); MEAN CORPUSCULAR VOLUME 104.8 fL (79-99); RED BLOOD CELL COUNT(AUTO) 2.72 MIL/uL (4.50-6.20); RED CELL DISTRIBUTION WIDTH 15.3 % (11.0-15.5); WHITE BLOOD COUNT (AUTO) 4.4 K/uL (4.8-10.8)
[2020-05-20] MEDS: INSULIN HUMULIN R 100 UNIT/ML 3ML SQ SCH ×2 (06:05→12:17)
[2020-05-20 06:25] LABS: POTASSIUM 3.7 mmol/L (3.5-5.1)
[2020-05-20 06:27] LABS: CREATININE 8.3 mg/dL (0.5-1.5)
[2020-05-20 07:49] VITALS: BP 109/32
[2020-05-20] MEDS: Vitamin B Complex/Vit C/Folic Acid PO SCH (09:05)
[2020-05-20] MEDS: METOPROLOL TARTRATE 25 MG TAB PO SCH (09:05)
[2020-05-20] MEDS: CLOPIDOGREL 75MG TAB PO SCH (09:06)
[2020-05-20] MEDS: APIXABAN 2.5 MG TABLET PO SCH (09:06)
[2020-05-20] MEDS: ALPRAZOLAM 1 MG TAB PO SCH ×2 (09:17→14:00)
[2020-05-20] MEDS ORDERED: CLOP75TA14 PO (10:12)
[2020-05-20] MEDS ORDERED: METO-408 PO (10:12)
[2020-05-20] MEDS ORDERED: ASPI-1443 PO (10:12)
[2020-05-20] MEDS ORDERED: APIX2.5T PO (10:12)
[2020-05-20 11:33] VITALS: BP 120/46
[2020-05-20] MEDS: CEFTRIAXONE 1G VIAL IVP SCH (14:00)
== END 2020-05-20 15:48 | disposition home or self-care (01) | DRG 246 ==
LOC: EDH 15:18 → EDHIP 17:15 → 4CH 20:30
PROVIDERS: ADMIT Internal Medicine Infectious Disease; ATTEND Internal Medicine Infectious Disease
PROC: 5A1D70Z Performance of Urinary Filtration, Intermittent, Less than 6 Hours Per Day (ICD-10-PCS; 2020-05-15)
PROC: 027135Z Dilation of Coronary Artery, Two Arteries with Two Drug-eluting Intraluminal Devices, Percutaneous Approach (ICD-10-PCS; principal; 2020-05-16)
PROC: 4A023N7 Measurement of Cardiac Sampling and Pressure, Left Heart, Percutaneous Approach (ICD-10-PCS; 2020-05-16)
PROC: B2111ZZ Fluoroscopy of Multiple Coronary Arteries using Low Osmolar Contrast (ICD-10-PCS; 2020-05-16)
PROC: B2151ZZ Fluoroscopy of Left Heart using Low Osmolar Contrast (ICD-10-PCS; 2020-05-16)
PROC: B41F1ZZ Fluoroscopy of Right Lower Extremity Arteries using Low Osmolar Contrast (ICD-10-PCS; 2020-05-16)
PROC: B2181ZZ Fluoroscopy of Left Internal Mammary Bypass Graft using Low Osmolar Contrast (ICD-10-PCS; 2020-05-16)
PROC: B245ZZ4 Ultrasonography of Left Heart, Transesophageal (ICD-10-PCS; 2020-05-17)
PROC: 5A1D70Z Performance of Urinary Filtration, Intermittent, Less than 6 Hours Per Day (ICD-10-PCS; 2020-05-17)
PROC: 5A1D70Z Performance of Urinary Filtration, Intermittent, Less than 6 Hours Per Day (ICD-10-PCS; 2020-05-19)
DX: T82.855A Stenosis of coronary artery stent, initial encounter (principal); N18.6 End stage renal disease; I25.110 Atherosclerotic heart disease of native coronary artery with unstable angina pectoris; N39.0 Urinary tract infection, site not specified; I12.0 Hypertensive chronic kidney disease with stage 5 chronic kidney disease or end stage renal disease; I48.3 Typical atrial flutter; E66.9 Obesity, unspecified; M19.90 Unspecified osteoarthritis, unspecified site; D63.1 Anemia in chronic kidney disease; E03.9 Hypothyroidism, unspecified; E11.22 Type 2 diabetes mellitus with diabetic chronic kidney disease; E11.51 Type 2 diabetes mellitus with diabetic peripheral angiopathy without gangrene; E78.5 Hyperlipidemia, unspecified; E87.5 Hyperkalemia; F41.1 Generalized anxiety disorder; F43.10 Post-traumatic stress disorder, unspecified; I45.9 Conduction disorder, unspecified; I95.3 Hypotension of hemodialysis; M54.17 Radiculopathy, lumbosacral region; N40.0 Benign prostatic hyperplasia without lower urinary tract symptoms; E11.42 Type 2 diabetes mellitus with diabetic polyneuropathy; Y83.1 Surgical operation with implant of artificial internal device as the cause of abnormal reaction of the patient, or of later complication, without mention of misadventure at the time of the procedure; R53.81 Other malaise; Z96.652 Presence of left artificial knee joint; Z68.29 Body mass index [BMI] 29.0-29.9, adult; Y92.89 Other specified places as the place of occurrence of the external cause; Z88.0 Allergy status to penicillin; Z99.2 Dependence on renal dialysis; Z79.02 Long term (current) use of antithrombotics/antiplatelets; Z79.899 Other long term (current) drug therapy; Z91.19 Patient's noncompliance with other medical treatment and regimen; Z87.442 Personal history of urinary calculi; Z86.718 Personal history of other venous thrombosis and embolism; Z83.3 Family history of diabetes mellitus
CPT/HCPCS: 36415; 71045; 80048; 80053; 80061; 80074; 81001; 82948; 83690; 83735; 83880; 84484; 85025; 85027; 85610; 85730; 86850; 86900; 86901; 87088; 90935; 93005; 93313; 93458; 93613; 93621; 93653; 99152; 99153; 99156; 99157; 99291; C1760; C1769; C1887; C1894; C9600; C9601; G0378; J0583; J0696; J1644; J1815; J2175; J2250; J3010; J3490; Q9967

== ENCOUNTER 2020-06-29 07:15 | Day surgery (SDC) | payer MEDICARE ==
[2020-06-27 11:13] LABS: BASOPHILS % (AUTO) 0.8 % (0.0-5.0); EOSINOPHILS % (AUTO) 2.4 % (0.0-8.0); HEMATOCRIT 28.9 % (42-54); LYMPHOCYTES % (AUTO) 20.6 % (21.0-51.0); MEAN CORPUSCULAR HEMOGLOBIN 34.4 pg (27.0-33.0); MEAN CORPUSCULAR HGB CONC 30.8 g/dL (32.0-36.0); MEAN CORPUSCULAR VOLUME 111.6 fL (79-99); MONOCYTES % (AUTO) 8.4 % (3.0-13.0); NEUTROPHILS % (AUTO) 67.2 % (40.0-77.0); PLATELET COUNT (AUTO) 223 K/uL (130-400); RED BLOOD CELL COUNT(AUTO) 2.59 MIL/uL (4.50-6.20); RED CELL DISTRIBUTION WIDTH 15.4 % (11.0-15.5); WHITE BLOOD COUNT (AUTO) 6.2 K/uL (4.8-10.8)
[2020-06-27 11:22] LABS: POTASSIUM 4.5 mmol/L (3.5-5.1)
[2020-06-27 11:27] LABS: CREATININE 9.5 mg/dL (0.5-1.5)
[2020-06-27 11:52] LABS: INR 1.07 (0.85-1.15); PROTHROMBIN TIME 11.6 SEC (9.6-11.6)
[2020-06-27 11:53] LABS: PARTIAL THROMBOPLASTIN TIME 24.9 SEC (26.3-35.5)
[2020-06-28 14:31] VITALS: BP 122/51
[2020-06-29] VITALS (9 sets, daily range): BP systolic 113–135; BP diastolic 49–64
[~2020-06-29] VITALS: Ht 175.3 cm; Wt 92.3 kg
[~2020-06-29 07:15] MED LIST changes: -AMLODIPINE PO; +ASPI-1443 PO; +CLOP75TA14 PO; +FOLI0.8T22 PO; -FOLI1TAB85 PO; -LOSARTAN PO; -METOPROLOL PO; +PHARMACY COMMUNICATION MISC SCH; +SODIUM CHLORIDE 0.9% 1000ML 1,000 ML IV ONE; -TRAZ-185 PO
[2020-06-29] MEDS ORDERED: SODIUM BICARB 50MEQ 50ML VIAL 50 ML ONE (08:39)
[2020-06-29] MEDS ORDERED: NITROGLYCERIN 2 MG/VIAL VIAL IV ONE (08:39)
[2020-06-29] MEDS ORDERED: HEPARIN SODIUM 1000UNIT/ML 10ML VIAL ONE (08:39)
[2020-06-29] MEDS ORDERED: MEPERIDINE-PF 25 MG/ML SYG ONE (08:40)
[2020-06-29] MEDS ORDERED: IOHEXOL 350 MG/ML 100ML INFUS..BTL IV ONE (08:40)
[2020-06-29] MEDS ORDERED: LIDOCAINE HCL 2% 20ML ONE (08:41)
[2020-06-29] MEDS ORDERED: MIDAZOLAM HCL 1 MG/ML 2ML VIAL ONE (08:41)
[2020-06-29] MEDS ORDERED: CLOPIDOGREL BISULFATE 75 MG TAB ONE (09:59)
[2020-06-29] MEDS ORDERED: ONDANSETRON HCL 4 MG/2 ML VIAL IVP PRN (10:15)
[2020-06-29] MEDS ORDERED: SODIUM CHLORIDE 0.9% 10 ML VIAL IV SCH (10:15)
[2020-06-29] MEDS ORDERED: DEXTROSE 50%-WATER 50 ML DISP.SYRIN IV PRN (10:15)
[2020-06-29] MEDS ORDERED: ACETAMINOPHEN-CODEINE 300/30MG TAB PO PRN ×2 (10:15)
[2020-06-29] MEDS ORDERED: INSULIN HUMULIN R 100 UNIT/ML 3ML SQ SCH (11:30)
== END 2020-06-29 14:15 | disposition home or self-care (01) ==
LOC: DAH 07:15
PROVIDERS: ATTEND Internal Medicine Cardiovascular Disease
DX: I25.119 Atherosclerotic heart disease of native coronary artery with unspecified angina pectoris (principal); E11.22 Type 2 diabetes mellitus with diabetic chronic kidney disease; I12.0 Hypertensive chronic kidney disease with stage 5 chronic kidney disease or end stage renal disease; N18.6 End stage renal disease; E78.5 Hyperlipidemia, unspecified; E11.40 Type 2 diabetes mellitus with diabetic neuropathy, unspecified; Z88.0 Allergy status to penicillin; Z99.2 Dependence on renal dialysis; Z95.5 Presence of coronary angioplasty implant and graft; Z79.01 Long term (current) use of anticoagulants; Z79.82 Long term (current) use of aspirin; Z79.899 Other long term (current) drug therapy; Z98.890 Other specified postprocedural states
CPT/HCPCS: 36415; 71045; 80048; 82948 ×2; 85025; 85610; 85730; 93005; 93458; A4215; A4216; A4221; A4222; A4223 ×3; A4606; A4663; C1725; C1760; C1769; C1874 ×2; C1887 ×2; C1894; C9600; C9601; J1644 ×2; J2175; J2250; J3490 ×3; J7030; Q9965; Q9967; 99156; 99157

== ENCOUNTER 2020-11-19 20:11 | Inpatient (IN) | payer MEDICARE ==
[~2020-11-19] VITALS: Ht 177.8 cm; Wt 100.4 kg
[~2020-11-19 20:11] MED LIST changes: +ATROPINE 1MG SYG IVP ONE; +EPINEPHRINE 1MG SYG 10ML IVP ONE; +NOREPINEPHRINE BITARTRATE 1 MG/1 ML ML IV ONE; -PHARMACY COMMUNICATION MISC SCH; -SODIUM CHLORIDE 0.9% 1000ML 1,000 ML IV ONE
[2020-11-19 20:12] VITALS: BP 126/63
[2020-11-19] MEDS ORDERED: 0.9%NACL 1000ML 1,000 ML IV ONE (21:00)
[2020-11-19 21:20] LABS: BASOPHILS % (AUTO) 0.4 % (0.0-5.0); EOSINOPHILS % (AUTO) 0.4 % (0.0-8.0); HEMATOCRIT 41.5 % (42-54); LYMPHOCYTES % (AUTO) 2.8 % (21.0-51.0); MEAN CORPUSCULAR HEMOGLOBIN 32.2 pg (27.0-33.0); MEAN CORPUSCULAR HGB CONC 31.6 g/dL (32.0-36.0); MONOCYTES % (AUTO) 4.5 % (3.0-13.0); NEUTROPHILS % (AUTO) 91.5 % (40.0-77.0); PLATELET COUNT (AUTO) 275 K/uL (130-400); RED BLOOD CELL COUNT(AUTO) 4.07 MIL/uL (4.50-6.20); RED CELL DISTRIBUTION WIDTH 14.8 % (11.0-15.5); WHITE BLOOD COUNT (AUTO) 13.7 K/uL (4.8-10.8)
[2020-11-19 21:32] LABS: INR 1.09 (0.85-1.15); PROTHROMBIN TIME 11.8 SEC (9.6-11.6)
[2020-11-19 21:33] LABS: PARTIAL THROMBOPLASTIN TIME 24.9 SEC (26.3-35.5)
[2020-11-19 21:41] LABS: B-TYPE NATRIURETIC PEPTIDE 4590 pg/mL (0-100)
[2020-11-19 21:53] LABS: ALBUMIN 3.6 g/dL (3.5-5.0); BILIRUBIN,TOTAL 0.4 mg/dL (0.2-1.0); TOTAL PROTEIN, SERUM 8.7 g/dL (6.0-8.3)
[2020-11-19 22:01] LABS: CREATININE 12.8 mg/dL (0.5-1.5); POTASSIUM 6.6 mmol/L (3.5-5.1)
[2020-11-19] MEDS ORDERED: DEXTROSE 50%-WATER 25 GM/50 ML VIAL IV ONE (22:30)
[2020-11-19] MEDS ORDERED: CALCIUM GLUC 1GM 1 GM in 0.9%NACL 100ML 100 ML IV ONE (22:30)
[2020-11-19] MEDS ORDERED: SODIUM BICARB 8.4% 50ML SYRINGE IVP ONE (22:30)
[2020-11-19] MEDS ORDERED: INSULIN HUMULIN R 100 UNIT/ML 3ML IV ONE (22:30)
[2020-11-19] MEDS ORDERED: SODIUM BICARB 50MEQ 50ML VIAL 50 ML ONE (22:33)
[2020-11-19] MEDS ORDERED: DEXTROSE 50%-WATER 50 ML DISP.SYRIN IV ONE (22:33)
[2020-11-19] MEDS ORDERED: CALCIUM GLUC 1GM/10ML VIAL IV ONE (22:33)
[2020-11-19] MEDS ORDERED: 0.9%NACL 100ML 100 ML ONE (22:34)
[2020-11-19] MEDS ORDERED: ALBUTEROL 0.083% 2.5 MG/3 ML INH IH ONE (22:58)
[2020-11-19] MEDS: ALBUTEROL 0.083% 2.5 MG/3 ML INH IH SCH (23:19)
[2020-11-19 23:30] VITALS: BP 117/63
[2020-11-20] VITALS (32 sets, daily range): BP systolic 90–127; BP diastolic 21–72
[2020-11-20] MEDS ORDERED: ONDANSETRON 4MG INJ IVP PRN (01:00)
[2020-11-20] MEDS ORDERED: DEXTROSE 50%-WATER 50 ML DISP.SYRIN IV PRN (01:00)
[2020-11-20] MEDS ORDERED: 0.9%NACL 1000ML 1,000 ML IV PRN (01:00)
[2020-11-20] MEDS ORDERED: ACETAMINOPHEN 325 MG TAB PO PRN ×2 (01:00)
[2020-11-20] MEDS ORDERED: GLUCAGON 1MG KIT 1 MG ML IM PRN (01:00)
[2020-11-20] MEDS: ALBUTEROL 0.083% 2.5 MG/3 ML INH IH SCH (06:00)
[2020-11-20] MEDS: INSULIN R PO SS1 SQ SCH ×4 (06:33→21:00)
[2020-11-20] MEDS ORDERED: LACTATED RINGERS 1000ML 500 ML IV SCH (07:12)
[2020-11-20 07:16] LABS: ABG BASE EXCESS -5.6 mmol/L (-2.0-3.0); ABG HCO3 19.5 mmol/L (21.0-28.0); ABG OXYGEN SATURATION 98.1 % (95.0-99.0); ABG PCO2 37 mmHg (35-48)
[2020-11-20] MEDS ORDERED: ATROPINE 1MG SYG IVP SCH (08:25)
[2020-11-20 08:49] LABS: ABG BASE EXCESS -0.8 mmol/L (-2.0-3.0); ABG HCO3 22.8 mmol/L (21.0-28.0); ABG OXYGEN SATURATION 97.3 % (95.0-99.0); ABG PCO2 34 mmHg (35-48)
[2020-11-20 08:52] LABS: HEMATOCRIT 38.1 % (42-54); MEAN CORPUSCULAR HEMOGLOBIN 32.3 pg (27.0-33.0); MEAN CORPUSCULAR HGB CONC 31.5 g/dL (32.0-36.0); MEAN CORPUSCULAR VOLUME 102.4 fL (79-99); RED BLOOD CELL COUNT(AUTO) 3.72 MIL/uL (4.50-6.20); RED CELL DISTRIBUTION WIDTH 14.8 % (11.0-15.5); WHITE BLOOD COUNT (AUTO) 15.8 K/uL (4.8-10.8)
[2020-11-20 09:28] LABS: ALBUMIN 2.9 g/dL (3.5-5.0); BILIRUBIN,TOTAL 0.4 mg/dL (0.2-1.0); MAGNESIUM 2.1 mg/dL (1.80-2.40); PHOSPHORUS 4.5 mg/dL (2.5-4.9); POTASSIUM 5.1 mmol/L (3.5-5.1); TOTAL PROTEIN, SERUM 7.2 g/dL (6.0-8.3)
[2020-11-20] MEDS ORDERED: ZOSYN 3.375GM+NS 50ML 3.38 GM in 0.9%NACL 50ML 50 ML IV SCH ×2 (09:30→21:00)
[2020-11-20] MEDS ORDERED: VANCOMYCIN 1G 1.5 GM in 0.9% NACL 250ML 250 ML IV SCH (09:30)
[2020-11-20] MEDS ORDERED: VANCOMYCIN PROTOCOL PER PHARMACY IV SCH (09:30)
[2020-11-20 09:46] LABS: CREATININE 10.1 mg/dL (0.5-1.5)
[2020-11-20] MEDS ORDERED: VANCOMYCIN KIT 1 GM/250 ML IV.KIT IV SCH (10:00)
[2020-11-20] MEDS ORDERED: HEPARIN 25,000 UNITS/250ML D5W 250 ML IV SCH (10:00)
[2020-11-20] MEDS ORDERED: 0.9% NACL 250ML 250 ML IV SCH (10:00)
[2020-11-20 10:23] LABS: BASOPHILS % (AUTO) 0.3 % (0.0-5.0); EOSINOPHILS % (AUTO) 0.3 % (0.0-8.0); HEMATOCRIT 38.5 % (42-54); LYMPHOCYTES % (AUTO) 2.9 % (21.0-51.0); MEAN CORPUSCULAR HGB CONC 31.2 g/dL (32.0-36.0); MEAN CORPUSCULAR VOLUME 105.8 fL (79-99); MONOCYTES % (AUTO) 6.2 % (3.0-13.0); NEUTROPHILS % (AUTO) 89.9 % (40.0-77.0); NUCLEATED RED BLOOD CELLS 0.1 % (0.0-0.19); PLATELET COUNT (AUTO) 219 K/uL (130-400); RED BLOOD CELL COUNT(AUTO) 3.64 MIL/uL (4.50-6.20); WHITE BLOOD COUNT (AUTO) 14.1 K/uL (4.8-10.8)
[2020-11-20] MEDS ORDERED: PHARMACY COMMUNICATION MISC SCH (10:30)
[2020-11-20 10:41] LABS: PARTIAL THROMBOPLASTIN TIME 26.3 SEC (26.3-35.5)
[2020-11-20] MEDS: MEROPENEM 500 MG VIAL IVP SCH ×2 (11:23→22:16)
[2020-11-20] MEDS ORDERED: ASPIRIN 325MG TAB PO SCH (11:30)
[2020-11-20] MEDS ORDERED: INSULIN GLARGINE 100 UNITS/ML 10 ML VIAL SQ SCH ×2 (11:30→21:00)
[2020-11-20 12:03] LABS: INR 1.12 (0.85-1.15); PROTHROMBIN TIME 12.1 SEC (9.6-11.6)
[2020-11-20] MEDS ORDERED: NOREPINEPHRINE 4MG/NS 250ML 250 ML IV ONE (12:13)
[2020-11-20] MEDS ORDERED: NOREPINEPHRINE 4MG/NS 250ML 250 ML IV SCH ×2 (13:00)
[2020-11-20] MEDS ORDERED: HEPARIN 5,000 UNIT VIAL IV ONE (16:00)
[2020-11-20 17:59] LABS: APPEARANCE,URINE SL CLOUDY (CLEAR); BILIRUBIN,URINE SMALL (NEGATIVE); COLOR,URINE RED (YELLOW); GLUCOSE, URINE (UA) 250 mg/dL (NEGATIVE); KETONES,URINE 5 mg/dL (NEGATIVE); LEUKOCYTE ESTERASE ,URINE LARGE (NEGATIVE); NITRATE,URINE POSITIVE (NEGATIVE); OCCULT BLOOD,URINE LARGE (NEGATIVE); PH,URINE 8.5 (5.0-8.0); PROTEIN,URINE >=300 mg/dL (NEGATIVE); UROBILINOGEN,URINE 0.2 mg/dL (0.2-1.0)
[2020-11-20 18:05] LABS: WBC,URINE 26-50 /HPF (0-1)
[2020-11-20 18:06] LABS: BACTERIA,URINE Moderate /HPF (None Seen); MUCUS,URINE Few LPF (None Seen); SQUAMOUS EPITHELIAL CELL,UR Rare /HPF (0-2)
[2020-11-20] MEDS ORDERED: NOREPINEPHRINE BITARTRATE 32 MG in 0.9% NACL 250ML 250 ML IV SCH (20:30)
[2020-11-21] VITALS: BP 110/26
[2020-11-21 00:30] VITALS: BP 109/24
[2020-11-21 01:00] VITALS: BP 106/68
[2020-11-21 01:30] VITALS: BP 91/67
[2020-11-21] MEDS ORDERED: AMIODARONE 900MG VIAL IV ONE (01:50)
[2020-11-21 01:51] LABS: ALBUMIN 2.8 g/dL (3.5-5.0); BILIRUBIN,TOTAL 0.5 mg/dL (0.2-1.0); MAGNESIUM 2.2 mg/dL (1.80-2.40); PHOSPHORUS 5.4 mg/dL (2.5-4.9); POTASSIUM 5.3 mmol/L (3.5-5.1); TOTAL PROTEIN, SERUM 7.2 g/dL (6.0-8.3)
[2020-11-21] MEDS ORDERED: AMIODARONE 150MG VIAL ONE (01:51)
[2020-11-21] MEDS ORDERED: 0.9%NACL 100ML 100 ML ONE (01:53)
[2020-11-21] MEDS ORDERED: 0.9% NACL 500ML IV.SOLN 500 ML IV ONE (01:53)
[2020-11-21 01:54] LABS: CREATININE 11.9 mg/dL (0.5-1.5)
[2020-11-21 02:00] VITALS: BP 91/67
[2020-11-21] MEDS ORDERED: AMIODARONE 150MG VIAL 150 MG in DEXTROSE 5%-WATER 100 ML IV SCH (02:00)
[2020-11-21] MEDS ORDERED: AMIODARONE 900MG VIAL 450 MG in DEXTROSE 5%-WATER 250 ML IV SCH (02:00)
[2020-11-21 07:15] LABS: HEPATITIS Bs ANTIGEN SCREEN P Negative (Negative)
[2020-11-21] MEDS ORDERED: PANTOPRAZOLE 40 MG/VIAL IVP SCH (09:00)
[2020-11-21] MEDS ORDERED: ASPIRIN 81MG CHEW TAB PO SCH (09:00)
[2020-11-21] MEDS ORDERED: CLOPIDOGREL 75MG TAB PO SCH (09:00)
[2020-11-22] MEDS ORDERED: VANCOMYCIN 500MG+NS 100ML IVPB IV SCH (10:00)
[2020-11-22] MEDS ORDERED: 0.9%NACL 100ML 100 ML IV SCH (10:00)
== END 2020-11-21 01:28 | DRG 871 ==
LOC: EDH 20:11 → EDHIP 23:40 → 3BH 11-20 02:11 → 2DH 11-20 08:11
PROVIDERS: ADMIT Internal Medicine Infectious Disease; ATTEND Internal Medicine Infectious Disease
PROC: 5A1D70Z Performance of Urinary Filtration, Intermittent, Less than 6 Hours Per Day (ICD-10-PCS; 2020-11-19)
PROC: 5A12012 Performance of Cardiac Output, Single, Manual (ICD-10-PCS; principal; 2020-11-20)
PROC: 05HY33Z Insertion of Infusion Device into Upper Vein, Percutaneous Approach (ICD-10-PCS; 2020-11-21)
DX: A41.9 Sepsis, unspecified organism (principal); N18.6 End stage renal disease; I21.4 Non-ST elevation (NSTEMI) myocardial infarction; J18.9 Pneumonia, unspecified organism; E87.1 Hypo-osmolality and hyponatremia; I13.2 Hypertensive heart and chronic kidney disease with heart failure and with stage 5 chronic kidney disease, or end stage renal disease; E87.5 Hyperkalemia; E11.22 Type 2 diabetes mellitus with diabetic chronic kidney disease; Z20.822 Contact with and (suspected) exposure to COVID-19; E78.5 Hyperlipidemia, unspecified; E03.9 Hypothyroidism, unspecified; I50.9 Heart failure, unspecified; Z66 Do not resuscitate; E11.51 Type 2 diabetes mellitus with diabetic peripheral angiopathy without gangrene; I25.5 Ischemic cardiomyopathy; R53.81 Other malaise; Y95 Nosocomial condition; I49.3 Ventricular premature depolarization; I49.9 Cardiac arrhythmia, unspecified; E78.00 Pure hypercholesterolemia, unspecified; I25.10 Atherosclerotic heart disease of native coronary artery without angina pectoris; E11.40 Type 2 diabetes mellitus with diabetic neuropathy, unspecified; F41.9 Anxiety disorder, unspecified; I25.2 Old myocardial infarction; Z95.5 Presence of coronary angioplasty implant and graft; Z88.0 Allergy status to penicillin; Z99.2 Dependence on renal dialysis; Z82.3 Family history of stroke; Z83.3 Family history of diabetes mellitus; Z82.0 Family history of epilepsy and other diseases of the nervous system; Z82.5 Family history of asthma and other chronic lower respiratory diseases; Z82.49 Family history of ischemic heart disease and other diseases of the circulatory system
CPT/HCPCS: 36415; 36600; 71045; 80053; 81001; 82435; 82550; 82803; 82947; 82948; 83605; 83735; 83874; 83880; 84100; 84132; 84295; 84484; 85018; 85025; 85027; 85610; 85730; 86704; 86706; 87040; 87088; 87340; 87635; 90935; 92950; 93005; 93306; 93356; 94640; 99291; C1751; C1894; C9803; G0378; J0171; J0282; J0461; J0610; J1644; J1815; J2185; J2543; J3370; J3490; J7040; J7050; J7060; J7070